=== PATIENT | male | born 1960 | race Caucasian/White ===

== ENCOUNTER 2018-03-17 04:54 | Emergency (ER) | payer OTHER ==
--- NOTE | 2018-03-17 05:06 | PDOC ---
History of Present Illness - General Chief Complaint: Injury Stated Complaint: INJURY Time Seen by Provider: 03/17/18 04:59 History Source: Patient Exam Limitations: No Limitations - History of Present Illness Initial Comments: 58 yo M w a pmh of lung cancer s/p left lobe lobectomy, rosacea and a rash presents to the ED stating he believes he tore his achilles heel. He reports that he was walking on when all of a sudden he felt a pop and was in extreme left ankle/and posterior calf pain. He was not able ambulate after the injury. He admits that when he was younger he injured his achilles when he was playing basketball but it was not as bad as it is now. He states that he has been taking doxycycline for the past month for his rosacea. He denies recent fevers, chills, infections. Denies chest pain, SOB, difficulty breathing. Denies any other complaints aside from his ankle injury and the rash for which he is being followed. PCP: Dr. Zabala Allergies: Possibly doxycycline Social Hx: Denies smoking, drinking or illicit drug usage. Past History - Past Medical History Allergies/Adverse Reactions: Allergies Allergy/AdvReac Type Severity Reaction Status Date / Time doxycycline Allergy Severe Rash Verified 03/17/18 05:21 Home Medications: Ambulatory Orders NK [No Known Home Medication] 03/17/18 Review of Systems - Review of Systems Able to Perform ROS?: Yes Comments:: CONSTITUTIONAL: Absent: fever, no chills, no fatigue EYES: Absent: visual changes ENT: Absent: ear pain, no sore throat CARDIOVASCULAR: Absent: chest pain, no palpitations RESPIRATORY: Absent: cough, no SOB GI: Absent: abdominal pain, no nausea, no vomiting, no constipation, no diarrhea GENITOURINARY: Absent: dysuria, no frequency, no hematuria MUSKULOSKELETAL: Present: Arthralgia + myalgia in left ankle Absent: back pain SKIN: Present: rash NEURO: Absent: headache *Physical Exam - Physical Exam General Appearance: Yes: Nourished, Appropriately Dressed. No: Apparent Distress HEENT: positive: EOMI, SANDRA, Normal ENT Inspection Neck: positive: Trachea midline, Supple Respiratory/Chest: positive: Lungs Clear, Normal Breath Sounds Cardiovascular: positive: Regular Rhythm, Regular Rate, S1, S2 Vascular Pulses: Dorsalis-Pedis (R): 2+, Doralis-Pedis (L): 2+ Gastrointestinal/Abdominal: positive: Normal Bowel Sounds, Soft Lymphatic: negative: Adenopathy Musculoskeletal: positive: Normal Inspection. negative: CVA Tenderness Extremity: positive: Normal Capillary Refill, Calf Tenderness (left), Other ( Positive squeeze/landaverde test. Left ankle is tender and swollen. Left calf is swollen and TTP. ) Integumentary: positive: Normal Color, Dry, Warm Neurologic: positive: taper machine II-XII NML intact, Fully Oriented, Alert, Normal Mood/ Affect Medical Decision Making - Medical Decision Making 58 yo M w a pmh of rosacea and a rash presents to the ED stating he believes he tore his achilles heel. DDx IBNLT: Achilles rupture, other tendon rupture, bone fx, DVT Plan: leg x-rays, analgesia, ice, plantar flexion ankle splint, +/- ortho consult, ortho FU. Patient likely has an achilles tendon rupture based on positive landaverde and positive squeeze test. Signing out patient to day team. *DC/Admit/Observation/Transfer Diagnosis at time of Disposition: Achilles tendon rupture - Discharge Dispostion Disposition: HOME Condition at time of disposition: Stable Decision to Admit order: No - Referrals Referrals: Josue Zabala [Primary Care Provider] - Phillip Colbert MD [Staff Physician] - - Patient Instructions Printed Discharge Instructions: DI for Achilles Tendon Rupture Additional Instructions: You came into the ER with ankle pain. We believe you ruptured your achilles tendon. We placed you in a splint to help your ankle and tendon. Make sure to follow up with an orthopedist in the next 7 to 10 days. Take motrin/ibuprofen/ advil as needed for pain control. Come back to the ER if your pain worsens, you get a fever, or have any other new or worsening concerns. Thank you for coming to the [facility] ED. We hope you feel better soon! Print Language: [place] - Post Discharge Activity
[2018-03-17] MEDS ORDERED: IBUPROFEN 600 MG TABLET (FP) PO ONE ×2 (05:21→05:30)
[2018-03-17 05:25] VITALS: BMI 24.2
--- NOTE | 2018-03-17 07:07 | PDOC ---
*Physical Exam - Vital Signs Last Vital Signs Temp Pulse Resp BP Pulse Ox 97.6 F 67 19 110/54 L 98 03/17/18 05:21 03/17/18 05:21 03/17/18 05:21 03/17/18 05:21 03/17/18 05:21 ED Treatment Course - Medications Given in the ED: ED Medications Discontinued Medications Generic Name Dose Route Start Last Admin Trade Name Mark PRN Reason Stop Dose Admin Ibuprofen 600 mg 03/17/18 05:21 03/17/18 05:38 Motrin - PO 03/17/18 05:22 600 mg ONCE ONE Administration Medical Decision Making - Medical Decision Making 03/17/18 07:[address] Parham for further evaluation. Patient is a 58 yo male w/ pmh of lung cancer s/p L lobectomy who presents for evaluation of L heel pain. Patient reports walking on when he "felt a pop" and has had extreme left ankle/calf pain since. He is not able to ambulate at this time. Reports a previous achilles injury years ago however not as severe. Mr. Yun has been taking doxycycline for the past month for rosacea. Has no other complaints at this time. Exam yielded positive Brady test on Left calf. 03/17/18 08:44 XR grossly negative. Discussed patient with Dr. Colbert (Orthopedics) who recommended plantar splint and f/u in office. Did not believe US required at this time given positive Brady test clinical findings. Will splint and DC to home for outpatient f/u Monday with Dr. Colbert. 03/17/18 09:16 While leaving patient noted slipped on floor and fell down. Did not injury L leg ; reportedly landed on his R side. Following this patient able to ambulate w/ his crutches w/out difficulty and reporting no increased pain. Following through with discharge. *DC/Admit/Observation/Transfer Diagnosis at time of Disposition: Achilles tendon rupture Qualifiers: Encounter type: initial encounter Laterality: left Qualified Code(s): S86.012A - Strain of left Achilles tendon, initial encounter - Discharge Dispostion Disposition: HOME Condition at time of disposition: Stable - Referrals Referrals: Phillip Colbert MD [Staff Physician] - Josue Zabala [Primary Care Provider] - - Patient Instructions Printed Discharge Instructions: DI for Achilles Tendon Rupture Additional Instructions: You were evaluated today in the ER for your achilles pain. We believe you have ruptured your achilles tendon. We discussed your case with Dr. Colbert who requested you call on Monday for an appointment for further care and a splint today for pain control. We placed you in a plantar splint and gave you crutches for ambulation. Please contact Dr. Colbert on Monday using attached information. You may take over the counter motrin or tylenol for pain control per package instructions. Return to ER immediately if any worsening of pain, fevers, chills , or other concerning symptoms. Print Language: CITIZEN [place] - Post Discharge Activity
[2018-03-17 09:32] VITALS: BP 128/72; PULSE 75; TEMP 97.8
== END 2018-03-17 09:22 | disposition home or self-care (01) ==
LOC: JER 04:54
DX: S86.012A Strain of left Achilles tendon, initial encounter (principal); R21 Rash and other nonspecific skin eruption; L71.9 Rosacea, unspecified
CPT/HCPCS: 72070-TC-FY; 72100-TC-FY; 73590-TC-LT-FY; 73610-TC-LT-FY; 73630-TC-LT; 99282-25